=== PATIENT | female | born 1950 | race Caucasian/White ===

== ENCOUNTER 2017-05-21 01:34 | Emergency (ER) | payer MEDICARE, BC, SELFPAY ==
[2017-05-21 01:35] VITALS: BP 147/65; PULSE 100; RESP 24; TEMP 36.8; O2SAT 97; BMI 25.0
[2017-05-21 02:21] VITALS: O2SAT 98
[2017-05-21] MEDS: Ipratropium/Albuterol Sulfate 3 ML AMPUL.NEB INHALATION (02:21)
[2017-05-21 02:25] VITALS: PULSE 88; RESP 12
[2017-05-21] MEDS: predniSONE 20 MG Tablet 40 MG PO (03:00)
--- NOTE | 2017-05-21 03:31 | ED.VISSUMM ---
- ER Visit Summary Date of Service: 05/21/17 Chief Complaint: [] Wheezing with COPD History of Present Illness: The patient is a 66 F chronic COPD complaining of wheezing for last 2 hours. She uses breathing treatments 4 times per day with chronic COPD on home oxygen. She states that she has not had a new infection but developed wheezing tonight. She used her nebulizer twice this evening and called the paramedics was gave her another breathing treatment which helped her out tremendously. She has mild wheezing shortness of breath currently but almost resolved. Physical Examination: Vital signs reviewed General: Well-nourished well-developed Head: Normocephalic atraumatic Eyes: Pupils equal round and reactive to light extraocular movements intact ENT: TMs clear no hemotympanum no trauma Neck: Nontender full range of motion Cardiovascular: Regular rate rhythm no murmurs normal S1-S2 Respiratory: No distress wheezes throughout all lung linder. Mild in nature. Chest nontender Abdomen: Soft nontender nondistended normal bowel sounds no masses Back: Nontender no CVA tenderness Extremities: Nontender active range of motion ?4 extremities no trauma Skin: Normal color no trauma Neuro alert oriented cranial nerves II through XII intact normal strength sensation reflexes Test Results: [] Emergency Department Course and Treatment: [] Patient given albuterol and Atrovent breathing treatment ?1 with good resolution of symptoms. She was given oral prednisone washed in the emergency department and will be discharged on prednisone. She has breathing treatments. I do not feel she needs to be admitted. She is on home oxygen. I do not feel she has an infection that would warrant antibiotics. Treatment Plan: [] Disposition: [] Impression: [] COPD with wheezing This note was generated with [employer] dictation software. It may contain incorrect words, spelling, and punctuation that were not noted in review of the chart prior to signing ED Disposition - Plan for ED Patient: Chief Complaint: Cough Referrals: Madie Rashid DO [Primary Care Provider] -
--- NOTE | 2017-05-21 03:32 | ED.DEP ---
ED Disposition - Plan for ED Patient: Disposition: Home or Assisted Living Chief Complaint: Cough Instructions: ED COPD Flare Prescriptions: Prednisone [Deltasone] 40 mg PO DAILY #10 tab Referrals: Madie Rashid DO [Primary Care Provider] -
[2017-05-21 06:17] VITALS: BP 138/66; PULSE 81; PULSE 82; RESP 24; O2SAT 97
== END 2017-05-21 06:19 | disposition home or self-care (01) ==
PROVIDERS: Emergency Provider Emergency Medicine; Family Provider Internal Medicine; PCP Internal Medicine
DX: J44.1 Chronic obstructive pulmonary disease with (acute) exacerbation (principal); I10 Essential (primary) hypertension; Z72.0 Tobacco use; Z99.81 Dependence on supplemental oxygen
CPT/HCPCS: 94640; 99284

== ENCOUNTER → 2017-09-18 15:21 | Outpatient (CLI) | payer MEDICARE, BC, SELFPAY ==
--- NOTE | 2017-09-18 15:27 | BD_ITS ---
STUDY: DUAL ENERGY X-RAY ABSORPTIOMETRY / DXA REASON FOR EXAM: Female, 66 years old. Postmenopausal screening TECHNIQUE: Bone Mineral Density (BMD) measurements of lumbar spine and left hip were obtained. COMPARISON: Multiple previous studies, most recent from 2012 FINDINGS: Lumbar Spine (L1-L4): g/cm2 (1.068) / T-score (-0.9) / Z-score (0.7) Findings are suggestive of normal bone density with a low fracture risk. Left Femur Total: g/cm2 (0.754) / T-score (-2.0) / Z-score (-0.6) Left Femoral Neck: g/cm2 (0.698) / T-score (-2.4) / Z-score (-0.8) The T-Scores on the most recent prior examination were: Lumbar Spine (L1-L4): There has been worsening of bone density since the previous examination. BD/Dexa Bone Density Study IMPRESSION: The patient is considered osteopenic as outlined below according to World Axel Organization (WHO) criteria with a moderate fracture risk. There has been worsening of bone density since the previous examination. Reference Information: The T-score is the number of standard deviations above or below the standard which is normal for young adults at their peak bone mineral density. The World Health Organization (WHO) interprets the T-scores as follows: Above -1 Normal bone density Between -1 and -2.5 Osteopenia Equal to / or below -2.5 Osteoporosis As a practical clinical guideline, osteopenia may be graded as follows: Mild -1 through -1.5 Moderate -1.6 through -2.0 Severe -2.1 through -2.4 The Z-score is the number of standard deviations above or below age-matched controls. A Z-score of less than -1.5 would be considered abnormal. References: 1. NIH Osteoporosis and Related Bone Diseases http://www.osteo.org 2. International Society for Clinical Densitometry http://www.iscd.org 3. National Osteoporosis Foundation http://www.nof.org Electronically Signed: Bhaskar Oneil MD at 9:33 EDT , Service support ,
== END ==
PROVIDERS: Family Provider Internal Medicine; PCP Internal Medicine; Visit Provider Internal Medicine
DX: Z78.0 Asymptomatic menopausal state (principal)
CPT/HCPCS: 77080